=== PATIENT | female | born 1960 | race Caucasian/White ===

== ENCOUNTER → 2019-04-22 | Outpatient (CLI) | payer OTHER | LOC: CAT 16:02 | DX: K76.0 Fatty (change of) liver, not elsewhere classified (principal); L72.3 Sebaceous cyst; I70.0 Atherosclerosis of aorta; I70.8 Atherosclerosis of other arteries; Z90.49 Acquired absence of other specified parts of digestive tract ==

== ENCOUNTER → 2019-05-18 | Outpatient (CLI) | payer OTHER | LOC: MRI 14:34 | DX: R10.84 Generalized abdominal pain (principal); R07.89 Other chest pain; R94.8 Abnormal results of function studies of other organs and systems; Z85.41 Personal history of malignant neoplasm of cervix uteri; Z90.710 Acquired absence of both cervix and uterus ==

== ENCOUNTER → 2019-06-08 | Outpatient (CLI) | payer OTHER | LOC: CAT 16:02 | DX: J32.9 Chronic sinusitis, unspecified (principal); D16.4 Benign neoplasm of bones of skull and face; J34.2 Deviated nasal septum; R23.8 Other skin changes ==